=== PATIENT | male | born 1985 | race Caucasian/White ===

== ENCOUNTER 2021-08-07 12:38 | Emergency (ER) | payer SELFPAY ==
[~2021-08-07] VITALS: Ht 180.3 cm; Wt 79.4 kg
[2021-08-07] MEDS ORDERED: TETANUS/DIPHTHERIA TOX ADULT 0.5 ML SYR IM ONE (13:00)
[2021-08-07] MEDS ORDERED: LIDOCAINE 1% 5ML-MPF INJ ONE (13:00)
== END 2021-08-07 13:40 | disposition home or self-care (01) ==
LOC: ER 12:43
DX: S61.412A Laceration without foreign body of left hand, initial encounter (principal); W26.0XXA Contact with knife, initial encounter; Y99.0 Civilian activity done for income or pay
CPT/HCPCS: 90714; 99282

== ENCOUNTER 2021-08-18 16:15 | Emergency (ER) | payer SELFPAY ==
[~2021-08-18] VITALS: Ht 182.9 cm; Wt 93.0 kg
== END 2021-08-18 16:31 | disposition home or self-care (01) ==
LOC: ER 16:17
DX: Z48.02 Encounter for removal of sutures (principal)
CPT/HCPCS: 99282; S0630